=== PATIENT | female | born 1975 | race Caucasian/White ===

== ENCOUNTER → 2016-06-22 | Outpatient (CLI) | payer OTHER ==
--- NOTE | 2016-06-22 11:43 | REP ---
LEFT HAND SERIES: AP AND LATERAL VIEWS. HISTORY: Thumb injury. Injury in a fall. FINDINGS: AP and lateral views of the left hand are obtained as requested. There is osteoarthritis at the IP joint of the thumb with moderate spurring. No fractures seen. Some soft tissue swelling is noted. Overall mineralization pattern is normal. IMPRESSION: No fracture seen. Osteoarthritis of the IP joint.
--- NOTE | 2016-06-22 11:44 | REP ---
RIGHT HAND SERIES: 06/22/2016 CLINICAL HISTORY: Trauma. FINDINGS: Four views are provided. Distal radius and ulna, carpal bones, and metacarpals intact. There is some soft tissue swelling of the dorsal aspect of the MCP joints. The phalanges and their joint spaces are intact. IMPRESSION: 1. No evidence of fracture. There is soft tissue swelling over the dorsal aspect of the MCP joints.
== END ==
LOC: M CLY 10:30
PROVIDERS: ATTEND Nurse Practitioner
DX: M19.042 Primary osteoarthritis, left hand (principal); M79.89 Other specified soft tissue disorders

== ENCOUNTER → 2020-02-29 | Outpatient (CLI) | payer OTHER | LOC: M LABSMTC 13:33 | PROVIDERS: ATTEND Pediatrics | DX: Z11.59 Encounter for screening for other viral diseases (principal) ==

== ENCOUNTER → 2020-03-13 | Outpatient (CLI) | payer OTHER | LOC: M LABSMTC 13:02 | PROVIDERS: ATTEND Family Medicine | DX: Z20.828 Contact with and (suspected) exposure to other viral communicable diseases (principal) ==

== ENCOUNTER 2020-06-01 01:17 | Emergency (ER) | payer OTHER ==
[~2020-06-01] VITALS: Ht 149.9 cm; Wt 62.0 kg
[2020-06-01 02:56] LABS: HEMATOCRIT 44.2 % (36.0-47.0); HEMOGLOBIN 14.7 g/dl (12.0-15.5); MEAN CORPUSCULAR HEMOGLOBIN 30.8 pg (27.0-33.0); MEAN CORPUSCULAR HGB CONC 33.3 g/dl (32.0-36.5); MEAN CORPUSCULAR VOLUME 92.5 fl (80.0-96.0); PLATELET COUNT, AUTOMATED 275 10^3/uL (150-450); RED BLOOD COUNT 4.78 10^6/uL (4.00-5.40); WHITE BLOOD COUNT 4.8 10^3/uL (4.0-10.0)
[2020-06-01 03:19] LABS: BLOOD UREA NITROGEN 6 MG/DL (7-18); CARBON DIOXIDE LEVEL 28 MEQ/L (21-32); CHLORIDE LEVEL 107 MEQ/L (98-107); CREATININE FOR GFR 0.71 MG/DL (0.55-1.30); GLOMERULAR FILTRATION RATE > 60.0 (>58); GLUCOSE, FASTING 101 MG/DL (70-100); POTASSIUM SERUM 3.3 MEQ/L (3.5-5.1); SODIUM LEVEL 141 MEQ/L (136-145)
[2020-06-01 03:22] LABS: ERYTHROCYTE SEDIMENTATION RATE 44 mm/hr (0-20)
[2020-06-01 04:09] LABS: URIC ACID 9.6 MG/DL (2.6-6.0)
[2020-06-01] MEDS ORDERED: COLCHICINE 0.6 MG TABLET PO ONE (04:45)
[2020-06-01] MEDS ORDERED: NAPROXEN 250 MG TAB PO ONE (04:45)
[2020-06-01] MEDS ORDERED: COLC0.6T47 PO (04:49)
[2020-06-01] MEDS ORDERED: NAPR-837 PO (04:49)
[2020-06-01 05:36] VITALS: BP 155/88
== END 2020-06-01 05:32 | disposition home or self-care (01) ==
LOC: M ED 01:17
DX: M10.9 Gout, unspecified (principal); F17.200 Nicotine dependence, unspecified, uncomplicated; Z91.040 Latex allergy status

== ENCOUNTER 2022-04-09 06:32 | Emergency (ER) | payer OTHER ==
[~2022-04-09] VITALS: Ht 149.9 cm; Wt 66.3 kg
[~2022-04-09 06:32] MED LIST: ACET-897 PO; COLC0.6T47 PO; NAPR-837 PO
[2022-04-09] MEDS ORDERED: IBUPROFEN 600MG TAB PO ONE (07:15)
[2022-04-09] MEDS ORDERED: DOXYCYCLINE HYCLATE 100MG TABLET PO ONE (07:15)
[2022-04-09] MEDS ORDERED: DOXY-443 PO (08:37)
[2022-04-09 09:04] VITALS: BP 147/92
== END 2022-04-09 09:11 | disposition home or self-care (01) ==
LOC: M ED 06:32
DX: S60.222A Contusion of left hand, initial encounter (principal); L03.012 Cellulitis of left finger; W00.0XXA Fall on same level due to ice and snow, initial encounter; I10 Essential (primary) hypertension; E78.5 Hyperlipidemia, unspecified; Z91.040 Latex allergy status; Z79.1 Long term (current) use of non-steroidal anti-inflammatories (NSAID); Z79.899 Other long term (current) drug therapy

== ENCOUNTER 2023-03-17 05:23 | Emergency (ER) | payer MEDICAID, OTHER, SELFPAY ==
[~2023-03-17] VITALS: Ht 149.9 cm; Wt 62.9 kg
[~2023-03-17 05:23] MED LIST changes: +DOXY-443 PO
[2023-03-17 11:03] LABS: BASO % 0.3 % (0.0-1.0); EOS % 0.6 % (0.0-3.0); HEMOGLOBIN 13.8 g/dl (12.0-15.5); LYMPH # 1.3 10^3/uL (1.5-5.0); LYMPH % 19.2 % (24.0-44.0); MEAN CORPUSCULAR HEMOGLOBIN 32.6 pg (27.0-33.0); MEAN CORPUSCULAR HGB CONC 33.7 g/dl (32.0-36.5); MEAN CORPUSCULAR VOLUME 96.9 fl (80.0-96.0); MONO # 0.6 10^3/uL (0.0-0.8); MONO % 9.5 % (2.0-8.0); NEUTROPHILS # 4.7 10^3/uL (1.5-8.5); PLATELET COUNT, AUTOMATED 206 10^3/uL (150-450); RED BLOOD COUNT 4.23 10^6/uL (4.00-5.40); WHITE BLOOD COUNT 6.8 10^3/uL (4.0-10.0)
[2023-03-17 11:07] LABS: ERYTHROCYTE SEDIMENTATION RATE 115 mm/hr (0-20)
[2023-03-17 11:28] LABS: BLOOD UREA NITROGEN 8 MG/DL (9-23); CALCIUM LEVEL 9.4 MG/DL (8.5-10.1); CARBON DIOXIDE LEVEL 24 MMOL/L (20-31); CHLORIDE LEVEL 102 MMOL/L (98-107); CREATININE FOR GFR 0.52 MG/DL (0.55-1.30); GLOMERULAR FILTRATION RATE > 60.0 (>58); GLUCOSE, FASTING 109 MG/DL (60-100); POTASSIUM SERUM 3.7 MMOL/L (3.5-5.1); SODIUM LEVEL 137 MMOL/L (136-145)
[2023-03-17] MEDS ORDERED: lisinopriL 40MG TAB PO ONE (11:30)
[2023-03-17] MEDS ORDERED: ACETAMINOPHEN 500 MG TAB PO ONE (11:30)
[2023-03-17] MEDS ORDERED: DOXYCYCLINE HYCLATE 100MG TABLET PO ONE (11:30)
[2023-03-17 11:31] LABS: URIC ACID 8.1 MG/DL (3.1-7.8)
[2023-03-17 11:47] VITALS: BP 181/89
[2023-03-17 12:56] VITALS: BP 141/91; TEMP 98; O2SAT 99
[2023-03-17] MEDS ORDERED: PRED20TA PO (13:07)
[2023-03-17] MEDS ORDERED: DOXY-443 PO (13:07)
[2023-03-17] MEDS ORDERED: LISI40TA4 PO (13:07)
== END 2023-03-17 13:21 | disposition home or self-care (01) ==
LOC: M ED 05:23
DX: L03.114 Cellulitis of left upper limb (principal); Z76.0 Encounter for issue of repeat prescription; I10 Essential (primary) hypertension; E78.5 Hyperlipidemia, unspecified; Z91.040 Latex allergy status

== ENCOUNTER 2023-10-29 05:48 | Inpatient (IN) | payer BC, SELFPAY ==
[~2023-10-29] VITALS: Ht 149.9 cm; Wt 65.9 kg
[~2023-10-29 05:48] MED LIST changes: +DOXY-323 PO; -DOXY-443 PO; +LISI40TA4 PO; +PRED20TA PO
[2023-10-29] MEDS ORDERED: VANCOMYCIN HCL 1,250 MG in NS 250 ML IV ONE (07:55)
[2023-10-29] MEDS: VANCOMYCIN HCL 750 MG, VIAL MATE ADAPTER 1 EACH in D5W 250 ML IV ONE (09:06)
[2023-10-29 09:24] LABS: BASO % 0.7 % (0.0-1.0); EOS # 0.1 10^3/uL (0.0-0.5); EOS % 1.7 % (0.0-3.0); HEMATOCRIT 40.8 % (36.0-47.0); HEMOGLOBIN 13.8 g/dl (12.0-15.5); MEAN CORPUSCULAR HEMOGLOBIN 32.5 pg (27.0-33.0); MEAN CORPUSCULAR HGB CONC 33.8 g/dl (32.0-36.5); MONO # 0.4 10^3/uL (0.0-0.8); MONO % 8.3 % (2.0-8.0); NEUTROPHILS # 1.7 10^3/uL (1.5-8.5); NEUTROPHILS % 40.8 % (36.0-66.0); PLATELET COUNT, AUTOMATED 226 10^3/uL (150-450); RED BLOOD COUNT 4.25 10^6/uL (4.00-5.40); WHITE BLOOD COUNT 4.2 10^3/uL (4.0-10.0)
[2023-10-29 09:33] LABS: ERYTHROCYTE SEDIMENTATION RATE 66 mm/hr (0-30)
[2023-10-29 09:39] LABS: ALBUMIN 3.8 G/DL (3.2-5.2); ALKALINE PHOSPHATASE 94 U/L (46-116); ALT/SGPT 68 U/L (7.0-40); AST/SGOT 59 U/L (<34); BILIRUBIN,DIRECT 0.1 MG/DL (<0.4); BILIRUBIN,TOTAL 0.4 MG/DL (0.3-1.2); BLOOD UREA NITROGEN 6 MG/DL (9-23); CALCIUM LEVEL 9.1 MG/DL (8.5-10.1); CARBON DIOXIDE LEVEL 25 MMOL/L (20-31); CHLORIDE LEVEL 106 MMOL/L (98-107); GLOMERULAR FILTRATION RATE > 60.0 (>51); GLUCOSE, FASTING 109 MG/DL (60-100); POTASSIUM SERUM 3.5 MMOL/L (3.5-5.1); SODIUM LEVEL 141 MMOL/L (136-145)
[2023-10-29] MEDS ORDERED: HOME MED LIST COMPLETE! XX SCH ×2 (10:10)
[2023-10-29] MEDS ORDERED: ACET-910 PO (10:10)
[2023-10-29] MEDS: VANCOMYCIN HCL 500 MG in D5W MINI-BAG PLUS 100 ML IV ONE (10:38)
[2023-10-29] MEDS ORDERED: traMADol 50 MG TAB PO PRN ×2 (11:50)
[2023-10-29] MEDS ORDERED: VANCOMYCIN HCL 1,000 MG, VIAL MATE ADAPTER 1 EACH in D5W 250 ML IV SCH (11:50)
[2023-10-29] MEDS ORDERED: ACETAMINOPHEN 500 MG TAB PO PRN (11:50)
[2023-10-29] MEDS: LABETALOL 100MG TAB PO SCH (13:40)
[2023-10-29] MEDS: VANCOMYCIN HCL 750 MG, VIAL MATE ADAPTER 1 EACH in D5W 250 ML IV SCH (16:01)
[2023-10-29 16:30] VITALS: BP 192/98; TEMP 97.3; O2SAT 99
[2023-10-29] MEDS: amLODIPine 5 MG TAB PO SCH (18:25)
[2023-10-29 21:54] VITALS: BP 158/86; TEMP 97.3; O2SAT 97
[2023-10-30] VITALS: BP 156/96; TEMP 97.3; O2SAT 97
[2023-10-30 03:42] VITALS: BP 142/82; TEMP 97.4; O2SAT 96
[2023-10-30 07:41] LABS: HEMATOCRIT 36.2 % (36.0-47.0); HEMOGLOBIN 12.1 g/dl (12.0-15.5); MEAN CORPUSCULAR HEMOGLOBIN 32.4 pg (27.0-33.0); MEAN CORPUSCULAR HGB CONC 33.4 g/dl (32.0-36.5); MEAN CORPUSCULAR VOLUME 97.1 fl (80.0-96.0); PLATELET COUNT, AUTOMATED 181 10^3/uL (150-450); RED BLOOD COUNT 3.73 10^6/uL (4.00-5.40); WHITE BLOOD COUNT 3.8 10^3/uL (4.0-10.0)
[2023-10-30 07:47] LABS: ALBUMIN 3.2 G/DL (3.2-5.2); ALKALINE PHOSPHATASE 92 U/L (46-116); ALT/SGPT 48 U/L (7.0-40); AST/SGOT 38 U/L (<34); BILIRUBIN,TOTAL 0.6 MG/DL (0.3-1.2); BLOOD UREA NITROGEN 8 MG/DL (9-23); CALCIUM LEVEL 8.5 MG/DL (8.5-10.1); CARBON DIOXIDE LEVEL 26 MMOL/L (20-31); CHLORIDE LEVEL 105 MMOL/L (98-107); GLOMERULAR FILTRATION RATE > 60.0 (>51); GLUCOSE, FASTING 110 MG/DL (60-100); POTASSIUM SERUM 3.7 MMOL/L (3.5-5.1); SODIUM LEVEL 138 MMOL/L (136-145); TOTAL PROTEIN 6.7 G/DL (5.7-8.2)
[2023-10-30 13:04] VITALS: BP 124/78
[2023-10-30 18:04] VITALS: BP 144/90; TEMP 97.5; O2SAT 98
[2023-10-30 20:40] VITALS: BP 152/88; TEMP 97.2; O2SAT 96
[2023-10-30 23:50] VITALS: BP 156/86; TEMP 97.5; O2SAT 97
[2023-10-31 04:40] VITALS: BP 130/98; TEMP 97.3; O2SAT 96
[2023-10-31 07:35] LABS: HEMATOCRIT 35.6 % (36.0-47.0); MEAN CORPUSCULAR HGB CONC 33.7 g/dl (32.0-36.5); MEAN CORPUSCULAR VOLUME 97.8 fl (80.0-96.0); PLATELET COUNT, AUTOMATED 170 10^3/uL (150-450); RED BLOOD COUNT 3.64 10^6/uL (4.00-5.40); WHITE BLOOD COUNT 4.8 10^3/uL (4.0-10.0)
[2023-10-31 07:52] LABS: BLOOD UREA NITROGEN 7 MG/DL (9-23); CALCIUM LEVEL 8.9 MG/DL (8.5-10.1); CARBON DIOXIDE LEVEL 26 MMOL/L (20-31); CHLORIDE LEVEL 104 MMOL/L (98-107); CREATININE FOR GFR 0.68 MG/DL (0.55-1.30); GLOMERULAR FILTRATION RATE > 60.0 (>51); GLUCOSE, FASTING 133 MG/DL (60-100); POTASSIUM SERUM 3.9 MMOL/L (3.5-5.1); SODIUM LEVEL 136 MMOL/L (136-145)
[2023-10-31 08:00] VITALS: BP 140/80; TEMP 97.7; O2SAT 96
[2023-10-31 09:21] VITALS: BP 140/80
[2023-10-31] MEDS ORDERED: DOXY100C3 PO (09:57)
[2023-10-31] MEDS ORDERED: AMLO1TAB24 PO (09:57)
[2023-10-31] MEDS ORDERED: LABE100T6 PO (09:57)
[2023-10-31] MEDS ORDERED: VANCOMYCIN HCL 1,000 MG, VIAL MATE ADAPTER 1 EACH in D5W 250 ML IV SCH (12:00)
== END 2023-10-31 11:40 | disposition home or self-care (01) | DRG 383 ==
LOC: M ED 05:48 → M ED INP 11:49 → M MSPAV 16:25
PROVIDERS: ADMIT Family Medicine; ATTEND Family Medicine
DX: L03.113 Cellulitis of right upper limb (principal); I10 Essential (primary) hypertension; Z91.040 Latex allergy status